=== PATIENT | male | born 1970 | race Two or more races ===

== ENCOUNTER 2020-12-22 13:11 | Emergency (ER) | payer OTHER ==
[~2020-12-22] VITALS: Ht 175.3 cm; Wt 81.6 kg
[2020-12-22 13:15] VITALS: BP 112/75
--- NOTE | 2020-12-22 13:20 | NUR ---
BIB [employer]ERS FOR MEDICAL CLEARANCE PRIOR TO BOOKING, C/O LEFT ARM PAIN 5/10. WILL CONTINUE TO MONITOR THE PATIENT.
[2020-12-22] MEDS ORDERED: KETOROLAC TROMETHAMINE INJ 60 MG/2 ML VIAL IM ONE (14:00)
[2020-12-22] MEDS ORDERED: ACETAMINOPHEN 325 MG TABLET PO ONE (14:00)
[2020-12-22] MEDS ORDERED: ACETAMINOPHEN 325 MG TABLET ONE (14:02)
[2020-12-22] MEDS ORDERED: KETOROLAC TROMETHAMINE 15 MG/ML VIAL ONE (14:02)
[2020-12-22] MEDS ORDERED: IBUP-1955 PO (14:23)
== END 2020-12-22 14:53 ==
LOC: ER 13:13
DX: M54.50 Low back pain, unspecified (principal); M25.512 Pain in left shoulder; Z78.1 Physical restraint status; Z60.2 Problems related to living alone
CPT/HCPCS: 73030; 96372; 99283; J1885